=== PATIENT | male | born 1995 | race African-American/Black ===

== ENCOUNTER 2024-02-07 08:49 | Emergency (ER) | payer OTHER ==
[~2024-02-07] VITALS: Ht 172.7 cm; Wt 66.0 kg
[2024-02-07 08:53] VITALS: O2SAT 100
[2024-02-07] MEDS ORDERED: INSULIN (08:53)
[2024-02-07 09:49] LABS: BASOPHILS % 0.5 % (0.0-2.0); DIFFERENTIAL COMMENT 0; EOSINOPHILS % 0.9 % (0.0-5.0); HEMATOCRIT. 25.4 % (42.0-52.0); HEMOGLOBIN. 8.8 g/dL (14.0-18.0); LYMPHOCYTES % 14.6 % (20.0-50.0); MEAN CORPUSCULAR HEMOGLOBIN 24.5 pg (28.0-32.0); MEAN CORPUSCULAR HGB CONC 34.6 g/dL (31.0-37.0); MEAN PLATELET VOLUME 7.9 fl (7.4-10.4); MONOCYTES % 6.3 % (2.0-8.0); NEUTROPHILS % 77.7 % (40.0-76.0); PLATELET 194 x1000/uL (130-400); RED BLOOD CELL COUNT 3.58 mill/uL (4.7-6.1); RED CELL DISTRIBUTION WIDTH 19.6 % (11.6-14.6); WHITE BLOOD COUNT 8.8 x1000/uL (4.5-11.0)
[2024-02-07 09:56] LABS: CHLORIDE 101 mEq/L (98-107); POTASSIUM 4.1 mEq/L (3.5-5.1); SODIUM 132 mEq/L (136-145)
[2024-02-07 09:57] LABS: CARBON DIOXIDE 27 mEq/L (21-32); INR 0.9; PROTHROMBIN TIME 10.6 sec (9.6-11.0)
[2024-02-07 10:02] LABS: CREATININE 1.5 mg/dL (0.6-1.3); UREA NITROGEN BLOOD 18 mg/dL (9-23)
[2024-02-07 10:03] LABS: LACTATE DEHYDROGENASE 208 IU/L (120-246)
[2024-02-07 10:04] LABS: ALANINE AMINOTRANSFERASE 8 IU/L (10-49); ALBUMIN 3.9 g/dL (3.2-4.8); ASPARTATE AMINOTRANSFERASE 21 IU/L (<34); PROTEIN TOTAL 6.9 g/dL (6.0-8.3)
[2024-02-07 10:16] LABS: SICKLE CELL SCREEN POSITIVE (NEGATIVE)
[2024-02-07 10:19] LABS: GLUCOSE 164 mg/dL (70-105)
[2024-02-07] MEDS: SODIUM CHLORIDE 0.9% 1,000 ML IV ONE (10:24)
[2024-02-07] MEDS: MORPHINE SULFATE 4 MG/ML INJ (FOR IV/IM USE) IV STA (10:24)
[2024-02-07] MEDS: KETOROLAC 30MG/ML VIAL IV ONE (10:24)
[2024-02-07] MEDS ORDERED: IBUP-2028 MT (11:38)
[2024-02-07 12:45] VITALS: BP 118/83; PULSE 68; RESP 18; TEMP 97.9
== END 2024-02-07 12:47 | disposition home or self-care (01) ==
LOC: ER 08:49
DX: D57.80 Other sickle-cell disorders without crisis (principal); E11.9 Type 2 diabetes mellitus without complications
CPT/HCPCS: 80053; 85660; 83615; 85025; 85044; 85610; 36415; 96361; 96374; 96375; 99284; J1885; J2270; J7030; Z7610 ×3

== ENCOUNTER 2025-07-30 01:25 | Inpatient (IN) | payer OTHER, MEDICAID ==
[2025-07-30] VITALS (56 sets, daily range): BP systolic 110–209; BP diastolic 67–126; PULSE 81–122; RESP 12–33; TEMP 36.7–36.8072; O2SAT 92–100
[~2025-07-30] VITALS: Ht 170.2 cm; Wt 64.6 kg
[~2025-07-30 01:25] MED LIST: IBUP-2028 MT; INSULIN
[2025-07-30] MEDS: LORAZEPAM 1MG TABLET PO ONE (02:32)
[2025-07-30 03:00] LABS: BASOPHILS % 0.5 % (0.0-2.0); EOSINOPHILS % 0.3 % (0.0-5.0); HEMATOCRIT. 23.3 % (42.0-52.0); HEMOGLOBIN. 7.5 g/dL (14.0-18.0); LYMPHOCYTES % 7.6 % (20.0-50.0); MEAN PLATELET VOLUME 7.9 fl (7.4-10.4); MONOCYTES % 4.7 % (2.0-8.0); NEUTROPHILS % 86.9 % (40.0-76.0); PLATELET 225 x1000/uL (130-400); RED BLOOD CELL COUNT 3.11 mill/uL (4.7-6.1); RED CELL DISTRIBUTION WIDTH 17.4 % (11.6-14.6)
[2025-07-30 03:16] LABS: UREA NITROGEN BLOOD 33 mg/dL (9-23)
[2025-07-30 03:18] LABS: ASPARTATE AMINOTRANSFERASE 18 IU/L (<34); BILIRUBIN DIRECT 0.6 mg/dL (<=3.0); BILIRUBIN TOTAL 1.8 mg/dL (0.1-1.0); CREATININE 2.7 mg/dL (0.6-1.3); PROTEIN TOTAL 7.7 g/dL (6.0-8.3)
[2025-07-30] MEDS: SODIUM CHLORIDE 0.9% (SEPSIS BOLUS) IV ONE (03:51)
[2025-07-30] MEDS ORDERED: DEXTROSE 50% WATER 50ML SYRINGE IV PRN ×3 (04:00→06:45)
[2025-07-30] MEDS ORDERED: BLOOD SUGAR DIAGNOSTIC STRIP TEST PRN ×3 (04:00→06:45)
[2025-07-30] MEDS ORDERED: VANCOMYCIN 1G PREMIX 200 ML IV ONE (04:00)
[2025-07-30 04:05] LABS: CREATININE 2.8 mg/dL (0.6-1.3); UREA NITROGEN BLOOD 33 mg/dL (9-23)
[2025-07-30 04:07] LABS: PHOSPHORUS 4.6 mg/dL (2.5-4.9)
[2025-07-30 04:11] LABS: TROPONIN I HIGH SENSITIVITY 10 ng/L (3.0-53)
[2025-07-30] MEDS: INSULIN REGULAR (HUMULIN R) 1000UNITS/10ML VIAL IV NR (04:15)
[2025-07-30] MEDS: INSULIN REGULAR 100U/100ML PMX 100 ML IV SCH ×2 (04:15→08:08)
[2025-07-30] MEDS: BLOOD SUGAR DIAGNOSTIC STRIP TEST SCH ×2 (04:16→05:00)
[2025-07-30] MEDS: SODIUM CHLORIDE 0.9% 1,000 ML IV SCH ×3 (04:17→18:21)
[2025-07-30] MEDS: PIPERACILLIN/TAZO 3.375G/50ML 50 ML IV NR (04:28)
[2025-07-30] MEDS: DEXT 5%/0.9% NACL 1,000 ML IV SCH ×2 (05:00→08:21)
[2025-07-30] MEDS: VANCOMYCIN 1.25GM/250ML IV NR (05:05)
[2025-07-30] MEDS ORDERED: MAGNESIUM 2 G PREMIX 50 ML IV PRN (06:45)
[2025-07-30] MEDS ORDERED: LORAZEPAM 2MG/ML UD SYRINGE IV PRN ×2 (06:45→07:45)
[2025-07-30] MEDS ORDERED: ACETAMINOPHEN 325MG TABLET PO PRN ×2 (06:45)
[2025-07-30] MEDS ORDERED: POTASSIUM CHLORIDE 40 MEQ in SODIUM CHLORIDE 0.9% 230 ML IV PRN (06:45)
[2025-07-30] MEDS ORDERED: ONDANSETRON HCL 4MG/2ML INJ IV PRN (06:45)
[2025-07-30] MEDS ORDERED: SODIUM PHOSPHATE 15 MMOL in SODIUM CHLORIDE 0.9% 245 ML IV PRN (06:45)
[2025-07-30] MEDS ORDERED: BLOOD SUGAR DIAGNOSTIC STRIP TEST SCH (06:45)
[2025-07-30] MEDS ORDERED: ENOXAPARIN 40MG/0.4ML SYR SUBCUT SCH (09:00)
[2025-07-30] MEDS: FAMOTIDINE 20MG/2ML VIAL IV SCH (09:07)
[2025-07-30] MEDS: HYDRALAZINE 20MG/ML VIAL IV PRN (09:09)
[2025-07-30] MEDS: THIAMINE HCL 100 MG/1 ML 2ML VIAL IM SCH (09:16)
[2025-07-30] MEDS: ENOXAPARIN 30MG/0.3ML SYR SUBCUT SCH (09:16)
[2025-07-30 09:29] LABS: BG BASE EXCESS -9.7 mmol/L (-2.0-3.0); BG CARBOXYHEMOGLOBIN 2.4 % (0.5-1.5); BG DEOXYHEMOGLOBIN 2.2 % (0.0-5.0); BG FRACTION INSPIRED OXYGEN 21; BG HCO3 ACT 15.6 mmol/L (21.0-28.0); BG METHEMOGLOBIN 0.3 % (0.5-1.5); BG OXYGEN SATURATION 97.7 % (94.0-98.0); BG OXYHEMOGLOBIN 95.1 % (94.0-98.0); BG PCO2 31.1 mmHg (35.0-48.0); BG PH 7.317 (7.350-7.450); BG PO2 107.4 mmHg (83.0-108.0); BG SAMPLE SITE RIGHT BRACHIAL; BG TOTAL HEMOGLOBIN 6.0 g/dL (13.5-17.5); BG VENT MODE ROOM AIR
[2025-07-30] MEDS: OLANZAPINE 10 MG/VIAL IM NR (10:16)
[2025-07-30 10:43] LABS: CREATININE 2.3 mg/dL (0.6-1.3); UREA NITROGEN BLOOD 27 mg/dL (9-23)
[2025-07-30 10:45] LABS: PHOSPHORUS 2.4 mg/dL (2.5-4.9)
[2025-07-30] MEDS ORDERED: HYDRALAZINE 20MG/ML VIAL IV SCH (12:00)
[2025-07-30] MEDS: OLANZAPINE 2.5MG TABLET PO SCH (12:12)
[2025-07-30 13:25] LABS: BASOPHILS % 0.6 % (0.0-2.0); EOSINOPHILS % 1.9 % (0.0-5.0); HEMATOCRIT. 21.9 % (42.0-52.0); HEMOGLOBIN. 7.4 g/dL (14.0-18.0); LYMPHOCYTES % 14.9 % (20.0-50.0); MEAN PLATELET VOLUME 8.4 fl (7.4-10.4); MONOCYTES % 8.7 % (2.0-8.0); NEUTROPHILS % 73.9 % (40.0-76.0); PLATELET 230 x1000/uL (130-400); RED BLOOD CELL COUNT 3.01 mill/uL (4.7-6.1); RED CELL DISTRIBUTION WIDTH 17.4 % (11.6-14.6)
[2025-07-30 15:05] LABS: CREATININE 2.1 mg/dL (0.6-1.3); UREA NITROGEN BLOOD 21 mg/dL (9-23)
[2025-07-30 15:28] LABS: CLARITY URINE CLEAR (CLEAR); COLOR URINE YELLOW (YELLOW); GLUCOSE URINE 1+ (NEGATIVE); KETONES URINE TRACE (NEGATIVE); LEUKOCYTE ESTERASE URINE NEGATIVE (NEGATIVE); NITRITE URINE NEGATIVE (NEGATIVE); OCCULT BLOOD URINE NEGATIVE (NEGATIVE); PH URINE 5.0 (4.5-8.0); PROTEIN URINE 2+ (NEGATIVE); SPECIFIC GRAVITY URINE 1.011 (1.005-1.030); UROBILINOGEN URINE 0.2 E.U./dL (0.2-1.0)
[2025-07-30 15:49] LABS: BACTERIA URINE TRACE; RBC URINE NONE SEEN /hpf (0-2); SQUAMOUS EPITHELIAL CELL URINE RARE /lpf (RARE/1+); WBC URINE 0-2 /hpf (0-2)
[2025-07-30 15:50] LABS: MUCUS URINE TRACE /lpf (NONE/TRACE)
[2025-07-30 15:52] LABS: *AMPHETAMINES SCREEN URINE PRESUMPTIVE POSITIVE (NEGATIVE); *BARBITURATES SCREEN URINE NEGATIVE (NEGATIVE); *BENZODIAZEPINES SCREEN URINE NEGATIVE (NEGATIVE); *COCAINE SCREEN URINE NEGATIVE (NEGATIVE); METHADONE URINE SCREEN NEGATIVE (NEGATIVE); OPIATES URINE SCREEN NEGATIVE (NEGATIVE)
[2025-07-30 15:53] LABS: CANNABINOID URINE SCREEN NEGATIVE (NEGATIVE); ECSTASY MDMA SCREEN URINE CONF.TEST INDICATED (NEGATIVE); PHENCYCLIDINE URINE SCREEN NEGATIVE (NEGATIVE)
[2025-07-30 15:57] LABS: PHOSPHORUS 3.5 mg/dL (2.5-4.9)
[2025-07-30 21:16] LABS: CREATININE 2.1 mg/dL (0.6-1.3)
[2025-07-30 21:17] LABS: UREA NITROGEN BLOOD 21 mg/dL (9-23)
[2025-07-30 21:19] LABS: PHOSPHORUS 3.2 mg/dL (2.5-4.9)
[2025-07-30] MEDS: KCL 20MEQ/100ML PREMIX 100 ML IV PRN (21:58)
[2025-07-31] VITALS (66 sets, daily range): BP systolic 101–155; BP diastolic 68–93; PULSE 79–111; RESP 12–28; TEMP 36.7–37.2; O2SAT 98–100
[2025-07-31 02:43] LABS: CREATININE 1.9 mg/dL (0.6-1.3)
[2025-07-31 02:44] LABS: UREA NITROGEN BLOOD 15 mg/dL (9-23)
[2025-07-31 02:46] LABS: PHOSPHORUS 2.6 mg/dL (2.5-4.9)
[2025-07-31] MEDS: BLOOD SUGAR DIAGNOSTIC STRIP TEST SCH ×2 (06:49→08:24)
[2025-07-31 07:25] LABS: CREATININE 1.8 mg/dL (0.6-1.3); UREA NITROGEN BLOOD 16 mg/dL (9-23)
[2025-07-31 07:27] LABS: PHOSPHORUS 2.5 mg/dL (2.5-4.9)
[2025-07-31] MEDS ORDERED: DEXTROSE 50% WATER 50ML SYRINGE IV PRN (08:15)
[2025-07-31 08:21] LABS: BASOPHILS % 0.2 % (0.0-2.0); EOSINOPHILS % 4.5 % (0.0-5.0); LYMPHOCYTES % 16.5 % (20.0-50.0); MEAN PLATELET VOLUME 8.0 fl (7.4-10.4); MONOCYTES % 8.1 % (2.0-8.0); NEUTROPHILS % 70.7 % (40.0-76.0); PLATELET 169 x1000/uL (130-400); RED BLOOD CELL COUNT 2.31 mill/uL (4.7-6.1); RED CELL DISTRIBUTION WIDTH 17.1 % (11.6-14.6)
[2025-07-31 08:43] LABS: HEMATOCRIT. 17.1 % (42.0-52.0); HEMOGLOBIN. 5.7 g/dL (14.0-18.0)
[2025-07-31] MEDS: INSULIN LISPRO 100 UNITS/ML SUBCUT SCH (08:55)
[2025-07-31] MEDS: THIAMINE HCL 100MG TABLET PO SCH (08:55)
[2025-07-31] MEDS: INSULIN GLARGINE 100 UNITS/ML SUBCUT SCH (09:57)
[2025-07-31 17:11] LABS: CREATININE 1.8 mg/dL (0.6-1.3); UREA NITROGEN BLOOD 13 mg/dL (9-23)
[2025-07-31 17:13] LABS: PHOSPHORUS 2.4 mg/dL (2.5-4.9)
== END 2025-07-31 21:00 | disposition left against medical advice (07) | DRG 917 ==
LOC: ER 01:25 → CVICU 04:33 → EDBEDREQSVC 04:38 → EDBEDREQ 04:38 → EDBEDREQTM 04:38 → ENRESERV 05:34
PROVIDERS: ADMIT Student in an Organized Health Care Education/Training Program; ATTEND Student in an Organized Health Care Education/Training Program
DX: T43.651A Poisoning by methamphetamines accidental (unintentional), initial encounter (principal); E10.10 Type 1 diabetes mellitus with ketoacidosis without coma; N17.0 Acute kidney failure with tubular necrosis; E87.1 Hypo-osmolality and hyponatremia; F32.3 Major depressive disorder, single episode, severe with psychotic features; D50.9 Iron deficiency anemia, unspecified; E86.0 Dehydration; F10.10 Alcohol abuse, uncomplicated; E87.5 Hyperkalemia; D57.1 Sickle-cell disease without crisis; F15.10 Other stimulant abuse, uncomplicated; F17.210 Nicotine dependence, cigarettes, uncomplicated; F41.9 Anxiety disorder, unspecified; Z91.148 Patient's other noncompliance with medication regimen for other reason; Z78.1 Physical restraint status; Z79.4 Long term (current) use of insulin; Y92.89 Other specified places as the place of occurrence of the external cause
CPT/HCPCS: 36415; 36600; 71045; 80048; 80076; 80305; 80307; 80320; 80329; 81003; 82010; 82375; 82550; 82728; 82805; 82962; 83036; 83540; 83550; 83605; 83735; 83930; 84100; 84484; 85025; 87426; 93005; 96365; 96375; 99291; A4606; J0360; J1308; J1650; J1815; J2543; J3373; J3411; J3480; J3490; J7030; J7042; G0480